=== PATIENT | female | born 1960 ===

== ENCOUNTER 2016-11-12 12:34 | Emergency (ER) | payer BC, SELFPAY ==
[2016-11-12 12:51] VITALS: BP 123/70; PULSE 84; RESP 18; TEMP 98.1; O2SAT 99
--- NOTE | 2016-11-12 13:47 | RAD ---
PROCEDURE: Left Hip X-ray Radiographs. HISTORY: pain COMPARISON: None. FINDINGS: BONES: Normal. No fracture. JOINTS: Normal. SOFT TISSUES: Normal. OTHER FINDINGS: None. IMPRESSION: Normal left hip radiographs.
--- NOTE | 2016-11-12 14:05 | C.PDOC ---
History Of Present Illness 56 yo female c/o left thigh pain since yesterday. Pt notes that yesterday she lifted a heavy bag when doing laundry and believes this started the pain. No trauma. No change in sensation, no urinary /bowel incontinence. No back pain, abdominal pain , or fever. Took tramadol with mild relief. Time Seen by Provider: 11/12/16 12:55 Chief Complaint (Nursing): Lower Extremity Problem/Injury History Per: Patient History/Exam Limitations: no limitations Onset/Duration Of Symptoms: Hrs Past Medical History Vital Signs: Last Vital Signs Temp 98.1 F 11/12/16 12:49 Pulse 84 11/12/16 12:49 Resp 18 11/12/16 12:49 BP 123/70 11/12/16 12:49 Pulse Ox 99 11/12/16 12:49 Family History: States: Unknown Family Hx - Social History Hx Alcohol Use: Yes Hx Substance Use: No Review Of Systems Except As Marked, All Systems Reviewed And Found Negative. Constitutional: Negative for: Fever Cardiovascular: Negative for: Chest Pain Respiratory: Negative for: Shortness of Breath Gastrointestinal: Negative for: Abdominal Pain Genitourinary: Negative for: Dysuria, Frequency Musculoskeletal: Positive for: Leg Pain Neurological: Negative for: Weakness, Numbness Physical Exam - Physical Exam Appears: Well, Non-toxic, No Acute Distress Skin: Normal Color, Warm, Dry Head: Atraumatic, Normacephalic Eye(s): bilateral: Normal Inspection, EOMI Nose: Normal Oral Mucosa: Moist Throat: Normal, No Erythema, No Exudate Neck: Normal, Normal ROM, Supple Chest: Symmetrical Cardiovascular: Rhythm Regular Respiratory: Normal Breath Sounds Gastrointestinal/Abdominal: Normal Exam, Soft, No Tenderness Back: Normal Inspection, No CVA Tenderness, No Vertebral Tenderness Extremity: Normal ROM, Tenderness ((+) mild tenderness to left upper back thigh/ buttock), No Pedal Edema, No Calf Tenderness, Capillary Refill (< 2 sec), No Swelling Extremity: Bilateral: Atraumatic, Normal Color And Temperature, Normal ROM Pulses: Left Dorsalis Pedis: Normal, Right Dorsalis Pedis: Normal Neurological/Psych: Oriented x3, Normal Speech, Normal Motor, Normal Sensation Gait: Steady ED Course And Treatment O2 Sat by Pulse Oximetry: 99 Progress Note: Toradol IM. On re-evaluation, pain improved. No change in sensation. No abd pain or pain. No urinary symptoms. Instructed to follow up with pmd in 1-2 days. Disposition - Disposition Disposition: HOME/ ROUTINE Disposition Time: 14:09 Condition: STABLE Additional Instructions: Follow up with primary medical doctor in 1-3 days without fail for further evaluation. Take medications as prescribed. Return to the emergency department at any time if symptoms persist or worsen. Prescriptions: Naproxen [Naprosyn] 1 tab PO BID PRN #20 tab PRN Reason: Pain Instructions: Muscle Strain (ED) Forms: [employer] (Hungarian) - Clinical Impression Clinical Impression: Leg strain
== END 2016-11-12 14:29 | disposition home or self-care (01) ==
LOC: C.ER 12:34
DX: S76.912A Strain of unspecified muscles, fascia and tendons at thigh level, left thigh, initial encounter (principal); X50.0XXA Overexertion from strenuous movement or load, initial encounter; Y93.E2 Activity, laundry; Y92.89 Other specified places as the place of occurrence of the external cause
CPT/HCPCS: 73502; 96372; 99283; J1885